=== PATIENT | male | born 1965 | race Caucasian/White ===

== ENCOUNTER 2018-10-23 10:15 | Emergency (ER) | payer MEDICAID, OTHER ==
[2018-10-23 12:22] LABS: ADD MAN DIFF? NO
[2018-10-23 12:32] LABS: WHITE BLOOD COUNT 4.6 10^3/ul (4.8-10.8)
[2018-10-23 12:32] LABS: ABNORMAL IP MESSAGE 1; BASOPHILS % 0.4 % (0.0-2.0); HEMOGLOBIN 13.4 g/dl (14.0-18.0); LYMPHOCYTES # 0.5 10^3/ul (0.8-2.9); LYMPHOCYTES % 11.7 % (15.0-51.0); MEAN CORPUSCULAR HEMOGLOBIN 29.6 pg (29.0-33.0); MEAN CORPUSCULAR HGB CONC 33.5 g/dl (32.0-37.0); MEAN CORPUSCULAR VOLUME 88.5 fl (82.0-101.0); MEAN PLATELET VOLUME 9.2 fl (7.4-10.4); MONOCYTE # 0.3 10^3/ul (0.3-0.9); MONOCYTES % 6.7 % (0.0-11.0); NEUTROPHIL # 3.7 10^3/ul (1.6-7.5); PLATELET COUNT 112 10^3/UL (140-415); POSITIVE DIFF @See below; RED BLOOD COUNT 4.52 10^6/ul (4.70-6.10); RED CELL DISTRIBUTION WIDTH 13.9 % (11.5-14.5)
[2018-10-23] MEDS: SOD CHLORIDE 0.9% 1,000 ML IV (12:32)
[2018-10-23] MEDS: LORAZEPAM 2 MG INJ IV (12:32)
[2018-10-23 12:52] LABS: INR 0.94; PROTIME 12.7 Sec (11.9-14.9)
[2018-10-23 12:53] LABS: PARTIAL THROMBOPLASTIN TIME 27.5 Sec (23.0-35.0)
[2018-10-23 12:55] LABS: ALBUMIN 4.7 g/dl (3.3-4.9); ALBUMIN/GLOBULIN RATIO 1.38; ANION GAP 16 (5-13); ASPARTATE AMINO TRANSFERASE 176 IU/L (15-46); BILIRUBIN,INDIRECT 0.7 mg/dl (0-1.1); BILIRUBIN,TOTAL 0.7 mg/dl (0.2-1.3); BLOOD UREA NITROGEN 8 mg/dl (7-20); CALCIUM 9.1 mg/dl (8.4-10.2); CARBON DIOXIDE 21 mmol/L (21-31); CHLORIDE 103 mmol/L (97-110); CREATINE KINASE 411 IU/L (23-200); Estimated GFR > 60 mL/min (>60); GLUCOSE 95 mg/dl (70-220); POTASSIUM 3.7 mmol/L (3.5-5.1); SODIUM 140 mmol/L (135-144); TOTAL PROTEIN 8.1 g/dl (6.1-8.1)
[2018-10-23 12:56] LABS: ALANINE AMINOTRANSFERASE 50 IU/L (13-69); ALKALINE PHOSPHATASE 104 IU/L (42-121)
[2018-10-23 13:07] LABS: B-TYPE NATRIURETIC PEPTIDE 52 PG/ML (0-125); CK INDEX 0.8; TROPONIN-I < 0.012 ng/ml (0.000-0.120)
[2018-10-23 13:10] LABS: CK-MB 3.19 ng/ml (0.0-2.4)
[2018-10-23] MEDS: CHLORDIAZEPOXIDE 25 MG CAP PO (13:19)
[2018-10-23] MEDS: MAGNESIUM SULFATE 2 GM, MULTIVITAMINS 10 ML, THIAMINE 100 MG, FOLIC ACID 1 MG in SOD CH... IV (13:48)
== END 2018-10-23 17:06 | disposition home or self-care (01) ==
LOC: E/R 10:15
DX: R00.2 Palpitations (principal); F10.230 Alcohol dependence with withdrawal, uncomplicated; R07.9 Chest pain, unspecified
CPT/HCPCS: 36415; 71045; 80053; 80307; 82550; 82553; 83880; 84484; 85025; 85610; 85730; 93005; 96374; 96375; 99285-25